=== PATIENT | male | born 1960 | race Caucasian/White ===

== ENCOUNTER 2018-01-08 11:04 | Day surgery (SDC) | payer BC ==
[2018-01-07 12:29] VITALS: BMI 32.4
[2018-01-08] MEDS ORDERED: PROPOFOL 20 ML ONE ×2 (12:51)
[2018-01-08 13:45] VITALS: TEMP 98
[2018-01-08 14:40] VITALS: BP 121/66; PULSE 75
--- NOTE | 2018-01-12 15:57 | PATH ---
Surgical Pathology Report Patient Name: REBEKA CALLAWAY [facility]. Rec. #: [id number] /Age/Gender: 1960 (Age: 57) / M Account: [id number] Location: [facility]-ENDOSCOPY Taken: 01/08/2018 Received: 01/11/2018 Reported: 01/12/2018 Physicians: Beatriz Kapoor M.D. Specimen(s) Received BX POLYP PROXIMAL TRANSVERSE COLON Clinical History History of polyp Postop diagnosis: Polyp Final Diagnosis PROXIMAL TRANSVERSE COLON POLYP, POLYPECTOMY: TUBULAR ADENOMA. Electronically Signed Cory Howard M.D. Gross Description Received in formalin, labeled "polyp proximal transverse colon" is a young, irregular portion of soft tissue measuring 0.7 cm. in greatest dimension. The specimen is submitted in toto in one cassette. /01/11/2018 [facility]/01/11/2018
== END 2018-01-08 14:20 | disposition home or self-care (01) ==
LOC: JASU-ENDO 11:04
PROVIDERS: ATTEND Internal Medicine Gastroenterology
PROC: 0DBL8ZX Excision of Transverse Colon, Via Natural or Artificial Opening Endoscopic, Diagnostic (ICD-10-PCS; principal; 2018-01-08 11:00)
DX: Z12.11 Encounter for screening for malignant neoplasm of colon (principal); Z86.010 Personal history of colon polyps; D12.3 Benign neoplasm of transverse colon; K64.8 Other hemorrhoids
CPT/HCPCS: 88305-TC

== ENCOUNTER 2021-05-20 05:09 | Day surgery (SDC) | payer BC ==
[2021-05-14 14:23] VITALS: BMI 32.3
[2021-05-20 10:45] VITALS: TEMP 98.2
[2021-05-20 11:15] VITALS: BP 114/76; PULSE 68
== END 2021-05-20 11:50 | disposition home or self-care (01) ==
LOC: JASU-ENDO 05:09
PROVIDERS: ATTEND Internal Medicine Gastroenterology
PROC: 0DBN8ZX Excision of Sigmoid Colon, Via Natural or Artificial Opening Endoscopic, Diagnostic (ICD-10-PCS; 2021-05-20)
PROC: 0DBP8ZX Excision of Rectum, Via Natural or Artificial Opening Endoscopic, Diagnostic (ICD-10-PCS; 2021-05-20)
PROC: 0DBM8ZX Excision of Descending Colon, Via Natural or Artificial Opening Endoscopic, Diagnostic (ICD-10-PCS; principal; 2021-05-20 10:00)
DX: Z12.11 Encounter for screening for malignant neoplasm of colon (principal); D12.4 Benign neoplasm of descending colon; D12.5 Benign neoplasm of sigmoid colon; K62.1 Rectal polyp; K64.8 Other hemorrhoids
CPT/HCPCS: 88305-TC